=== PATIENT | male | born 1960 | race Caucasian/White ===

== ENCOUNTER 2017-07-26 07:45 | Observation (INO) | payer BC ==
[~2017-07-26] VITALS: Ht 182.9 cm; Wt 99.0 kg
--- NOTE | ~2017-07-26 | EKG ---
PATIENT: ENE CHAMPION UNIT #: [id number] Ventricular Rate: 50 BPM Atrial Rate: 50 BPM P-R Interval: 172 ms QRS Duration: 90 ms Q-T Interval: 442 ms QTC Calculation(Bezet): 402 ms P [place]: 18 degrees Calculated R [place]: 3 degrees Calculated T [place]: 50 degrees Diagnosis Line: Sinus bradycardia Diagnosis Line: Otherwise normal ECG Diagnosis Line: When compared with ECG of 26-JUL-2017 13:11, Diagnosis Line: (unconfirmed) Diagnosis Line: T wave inversion no longer evident in Anterior Diagnosis Line: leads Diagnosis Line: Confirmed by RADHA LIAO MD ([id number]) on 07/31/2017 Diagnosis Line: 7:39:54 AM INTERPRETING MD: YANNI DONALDSON
--- NOTE | ~2017-07-26 | EKG ---
PATIENT: ENE CHAMPION UNIT #: [id number] Ventricular Rate: 58 BPM Atrial Rate: 58 BPM P-R Interval: 164 ms QRS Duration: 84 ms Q-T Interval: 414 ms QTC Calculation(Bezet): 406 ms P [place]: 18 degrees Calculated R [place]: 1 degrees Calculated T [place]: 54 degrees Diagnosis Line: Sinus bradycardia Diagnosis Line: Otherwise normal ECG Diagnosis Line: When compared with ECG of 10-SEP-2014 13:35, Diagnosis Line: Nonspecific T wave abnormality now evident in Diagnosis Line: Anterior leads Diagnosis Line: Confirmed by RADHA LIAO MD ([id number]) on 07/31/2017 Diagnosis Line: 7:35:29 AM INTERPRETING MD: YANNI DONALDSON
--- NOTE | ~2017-07-26 | EKG ---
PATIENT: ENE CHAMPION UNIT #: [id number] Ventricular Rate: 60 BPM Atrial Rate: 60 BPM P-R Interval: 168 ms QRS Duration: 80 ms Q-T Interval: 420 ms QTC Calculation(Bezet): 420 ms P [place]: 15 degrees Calculated R [place]: 1 degrees Calculated T [place]: 64 degrees Diagnosis Line: Normal sinus rhythm Diagnosis Line: Normal ECG Diagnosis Line: When compared with ECG of 26-JUL-2017 08:35, Diagnosis Line: No significant change was found Diagnosis Line: Confirmed by RADHA LIAO MD ([id number]) on 07/31/2017 Diagnosis Line: 7:36:25 AM INTERPRETING MD: YANNI DONALDSON
--- NOTE | ~2017-07-26 | DS ---
Unit #: [id number] #: [id number] Patient: ENE CHAMPION [id number] [address] [address] [id number] MR#: [id number] NAME: ENE CHAMPION ROOM: 553 Age: 56 Sex: M Admission Date: 07/26/2017 : 1960 Discharge Date: 07/27/2017 Attending Physician: Matthew Roman M.D. Referring Physician: Matthew Roman M.D. Primary Care Physician: Andres Rolon M.D. DISCHARGE SUMMARY DISCHARGE DIAGNOSES 1. Unstable angina. 2. Status post cardiac catheterization on 07/26/[address] Roman at [facility] that reveals the following results:. a. Left main normal. b. Left anterior descending artery with occlusion to the proximal secondary to in-stent stenosis. Mid and distal left anterior descending filled by patent left internal mammary artery graft. The lesion is chronic. c. Circumflex artery nondominant vessel with patent stent mid section. First marginal branch is normal. Second marginal branch called in-stent residential with 99% stenosis at its origin. Third marginal branch normal. d. Right coronary artery dominant vessel with stent mid section that is why they patent. PDA branch is normal. Acute right ventricular branch called in-stent residential with 99% stenosis at its origin. It is small in caliber with short distribution. e. No LV gram was done because of renal insufficiency. f. Aortic root angiogram was performed to assess vein graft to the marginal branch of the circumflex artery. There was no vein graft attached to the aortic root. g. Unsuccessful attempt to dilate the ostium of the second marginal branch of the circumflex artery. 3. Coronary artery bypass graft on 09/10/2017 with left internal mammary artery to the left anterior descending. 4. Hypertension. 5. Hyperlipidemia. 6. Palpitations. DISCHARGE MEDICATIONS Imdur 30 mg daily, Brilinta 60 mg b.i.d., metoprolol tartrate 25 mg b.i.d., Lipitor 40 mg q.h.s., lisinopril 10 mg daily, aspirin 81 mg daily, Nexium 1 tablet q.h.s. HOSPITAL COURSE This is a 56-year-old white male, who has been followed by Dr. Rome in the office who has a history of coronary artery bypass graft x1 with VILLAGOMEZ to the LAD in 2013. He had a recent visit to the office, where he had no complaints, however, the patient returned because of recurrent chest pain. He was advised to undergo cardiac catheterization for which he presents electively. The cardiac catheterization results, patent VILLAGOMEZ to the LAD. The [employer] LAD shows chronic occlusion. There was second marginal branch that was Unit #: [id number] #: [id number] Patient: ENE CHAMPION called in-stent residential with no bypass. Acute right ventricular branch with 99% at its origin and was also called in-stent residential; however, it was of small caliber and which short distribution. The previously placed stent to the right coronary artery that was widely patent. It was felt that the patient's chest pain was secondary to the acute right ventricular branch of the right coronary artery and the marginal branch of the circumflex. There was no vein graft attached to the aortic root to the marginal branch of the circumflex per aortic angiogram. There was unsuccessful attempt to dilate the ostium of the second marginal branch of the circumflex artery using several compliant and noncompliant balloons. It was unable to open the stent struts to allow the balloon to pass. The procedure was aborted. Post angiogram showed that the circumflex trunk remains widely patent as well as the stent to the mid circumflex artery. There was no change in the 99% stenosis of second marginal branch. The patient was observed overnight. He had no recurrent chest pain. Echocardiogram was to be done, because of dyspnea on exertion and fatigue to check LV systolic function. Echocardiogram preliminary shows an ejection fraction of 50% to 55%. He will continue on medical management. Plavix will be discontinued and the patient restarted on Brilinta at maintenance dose of 60 mg b.i.d. The patient had a complaint of palpitations during his admission, but there were no arrhythmias noted. He is stable for discharge today. PHYSICAL EXAMINATION VITAL SIGNS: Blood pressure 120/55, heart rate 55. CHEST: Clear to auscultation. HEART: S1 and S2 with regular rate and rhythm. ABDOMEN: Soft with positive bowel sounds. EXTREMITIES: Right radial without hematoma or bruising. DIAGNOSTIC STUDIES LABORATORY RESULTS: Glucose 117, BUN 16, creatinine 0.9, sodium 135, potassium 4.0. Cholesterol 114, triglycerides 150, LDL 44, HDL 40. White count 8.4, hemoglobin 14.4, hematocrit 41.0, and platelet count is 213. CARDIOVASCULAR STUDIES: EKG shows sinus bradycardia with a rate of 50 beats per minute, otherwise normal. DISCHARGE INSTRUCTIONS 1. The patient will be discharged home and care self. 2. Follow up with Dr. Rome in 6 weeks. He will need to call for an appointment. 3. The patient is continued on medical therapy for coronary artery disease. He will continue on dual anti-platelet therapy, will be done with aspirin and Brilinta. construction operations manager is detained the patient's cost of Brilinta prior to discharge. 4. The patient has been started on long-acting nitrates and low-dose amlodipine in addition to the beta-kailee. AC inhibitor and statin will also be continued. 5. Atenolol has been discontinued, because of backorder from manufacture. We will start on metoprolol tartrate 25 mg b.i.d. 6. Full report of echocardiogram to be done. Dictated by... Mervin Miner/[place] Unit #: [id number] #: [id number] Patient: ENE CHAMPION TD: 07/30/2017 20:30 JOB #: [id number] DISCHARGE SUMMARY Page 1 of 1 X Clay Dennis APRN X DISCHARGE SUMMARY
[~2017-07-26 07:45] MED LIST: ASPIRIN81 MG PO; CLOPIDOGREL75 MG PO; LIPITOR40 MG PO; LISINOPRIL10 MG PO; NEXIUM 24HR20 M1 PO; NITROGLYCERIN0.4 MG SL; PLAVIX PO; PRAVACHOL PO; PRAVASTATIN SOD40 MG; TENORMIN25 M1 PO; TENORMIN25 MG; ZESTRIL10 M1 PO; ZESTRIL10 MG; ZOCOR80 MG PO
[2017-07-26 08:46] LABS: PARTIAL THROMBOPLASTIN TIME 25.9 SECONDS (23.5-31.3); PROTHROMBIN TIME (PATIENT) 10.7 SECONDS (10.0-11.7)
[2017-07-26 08:47] LABS: HEMATOCRIT 44.6 % (38.0-50.0); HEMOGLOBIN 16.1 gm/dL (13.0-16.0); MEAN CELL VOLUME 93.9 FL (83-96); MEAN CORPUSCULAR HEMOGLOBIN 33.9 PG (28-34); MEAN CORPUSCULAR HGB CONC 36.1 g/dL (30-36); MEAN PLATELET VOLUME 7.4 FL (6.5-11.5); RED BLOOD COUNT 4.75 X10e (3.90-5.60); RED CELL DISTRIBUTION WIDTH 13.3 % (11.0-15.5); WHITE BLOOD COUNT 6.9 X10e3 (4.0-10.5)
[2017-07-26 08:54] LABS: BUN/CREATININE RATIO 11.81; CALCIUM SERUM 9.4 mg/dL (8.4-10.2); CREATININE SERUM 1.1 mg/dL (0.6-1.4); GLOM FILT RATE Estimated 73.6 mL/min (>60); POTASSIUM 4.3 mmol/L (3.5-5.1)
[2017-07-26 21:09] LABS: ANGIO %MB 3.5 % (0.0-4.0)
[2017-07-27 04:04] LABS: BASOPHIL# 0.1 X10e3 (0-0.3); BASOPHIL% 0.7 % (0-2.5); EOSINOPHIL# 0.1 X10e3 (0-0.7); EOSINOPHIL% 1.3 % (0.0-7.0); HEMOGLOBIN 14.4 gm/dL (13.0-16.0); LYMPHOCYTE# 1.9 X10e3 (1.0-3.5); LYMPHOCYTE% 23.1 % (17.0-45.0); MEAN CORPUSCULAR HEMOGLOBIN 33.2 PG (28-34); MEAN PLATELET VOLUME 7.7 FL (6.5-11.5); MONOCYTE# 0.9 X10e3 (0-1.0); MONOCYTE% 10.2 % (3.0-12.0); NEUTROPHIL# 5.4 X10e3 (1.5-7.1); NEUTROPHIL% 64.7 % (40-75); PLATELET COUNT 213 X10e3 (140-420); RED BLOOD COUNT 4.32 X10e (3.90-5.60); RED CELL DISTRIBUTION WIDTH 13.3 % (11.0-15.5); WHITE BLOOD COUNT 8.4 X10e3 (4.0-10.5)
[2017-07-27 04:06] LABS: DIFF IND NO
[2017-07-27 04:33] LABS: BUN/CREATININE RATIO 17.77; CALCIUM SERUM 8.4 mg/dL (8.4-10.2); CREATININE SERUM 0.9 mg/dL (0.6-1.4); GLOM FILT RATE Estimated 93.8 mL/min (>60)
[2017-07-27 05:03] LABS: ANGIO %MB 4.6 % (0.0-4.0); ANGIO MB 6.2 ng/ml
[2017-07-27] MEDS ORDERED: METOPROLOL TAR25 MG PO (15:13)
[2017-07-27] MEDS ORDERED: IMDUR-ER30 M1 PO (15:13)
[2017-07-27] MEDS ORDERED: NORVASC2.5 MG PO (15:14)
[2017-07-27] MEDS ORDERED: BRILINTA60 MG PO (15:16)
== END 2017-07-27 16:00 | disposition home or self-care (01) | DRG 313 ==
LOC: CCVL 07:45 → C5B 11:22
PROVIDERS: Internal Medicine Cardiovascular Disease
DX: R07.9 Chest pain, unspecified (principal); I25.10 Atherosclerotic heart disease of native coronary artery without angina pectoris; I10 Essential (primary) hypertension; Z95.5 Presence of coronary angioplasty implant and graft; Z95.1 Presence of aortocoronary bypass graft
CPT/HCPCS: 36415; 80048; 80061; 82550; 82553; 85025; 85027; 85347; 85610; 85730; 93005; 93306; 99152; 99153; C1725; C1769; C1887; C1894; G0378; J1644; J2250; J3010